=== PATIENT | male | born 1995 | race Caucasian/White ===

== ENCOUNTER 2018-07-19 21:05 | Emergency (ER) | payer OTHER ==
[~2018-07-19] VITALS: Ht 172.7 cm; Wt 78.3 kg
[2018-07-19] MEDS ORDERED: DIPH,PERTUSS(ACELL),TET VAC/PF 0.5 ML IM-VACC ONE ×2 (21:19→21:30)
[2018-07-19] MEDS ORDERED: LIDOCAINE-MPF 1%, 2ML ONE (21:19)
[2018-07-19] MEDS ORDERED: LIDOCAINE 2%, 20ML SQ ONE (21:30)
[2018-07-19] MEDS ORDERED: LIDOCAINE-MPF 2% ,5ML ONE (22:08)
[2018-07-19 22:41] VITALS: BP 105/47
== END 2018-07-19 22:52 | disposition home or self-care (01) ==
LOC: ED 22:46
DX: S61.212A Laceration without foreign body of right middle finger without damage to nail, initial encounter (principal); S61.223A Laceration with foreign body of left middle finger without damage to nail, initial encounter; W31.89XA Contact with other specified machinery, initial encounter; Y93.89 Activity, other specified; Y92.69 Other specified industrial and construction area as the place of occurrence of the external cause; Y99.0 Civilian activity done for income or pay
CPT/HCPCS: 12041; 73140; 90471; 90715; 99284; J3490